=== PATIENT | male | born 1950 | race Caucasian/White ===

== ENCOUNTER → 2023-02-07 | Outpatient (CLI) | payer MEDICARE, BC ==
[~2023-02-07] MED LIST: ALPRAZOLAM0.5 MG PO; ASPIRIN 32325 MG/TAB PO; BONINE PO; BUSPAR DIVIDOSE15 MG PO; CO-Q-10 100 MG-1 SGL PO; KLONOPIN 1MG1 MG PO; PAXIL PO; ZOCOR40 MG PO; ZOCOR80 MG PO
== END ==
LOC: COL.RAD 13:13
DX: I65.23 Occlusion and stenosis of bilateral carotid arteries (principal); R51.9 Headache, unspecified; R42 Dizziness and giddiness
CPT/HCPCS: Q9967